=== PATIENT | male | born 1945 | race Caucasian/White ===

== ENCOUNTER 2019-05-24 13:21 | Outpatient (CLI) | payer MEDICARE, SELFPAY ==
[2019-05-24 14:05] LABS: Creatinine Urine 35.74 mg/dL (40-278)
[2019-05-24 14:10] LABS: MALB Creatinine Ratio 100.1 mg/g (0-30); Microalbumin Urine Random 35.8 mg/L
[2019-05-24 14:26] LABS: Alanine Aminotransferase 61 U/L (16-63); Alkaline Phosphatase 70 U/L (46-116); Anion Gap 14.1 mmol/L (7-16); Aspartate Amino Transferase 52 U/L (15-37); Bilirubin,Total 0.6 mg/dL (0.00-1.00); Blood Urea Nitrogen 20 mg/dL (7-18); Calcium 10.3 mg/dL (8.5-10.1); Carbon Dioxide 32 mmol/L (21-32); Chloride 96 mmol/L (98-108); Estimated Glomerular Filt Rate 43; Free T4 Free Thyroxine 0.84 ng/dL (0.76-1.46); Glucose 267 mg/dL (70-99); Osmolality Calculated 297 mOsm/kg (285-295); Potassium 4.1 mmol/L (3.5-5.1); Prostate Specific Antigen 8.8 ng/mL (< OR = 4.0); Sodium 138 mmol/L (136-145); Total Protein 8.3 g/dL (6.4-8.2)
[2019-05-26 20:42] LABS: Total Triiodothyronine (T3) 94 ng/dL (76-181)
== END 2019-05-24 13:22 | disposition home or self-care (01) ==
PROVIDERS: PCP Family Medicine; Visit Provider Urology
DX: E11.65 Type 2 diabetes mellitus with hyperglycemia (principal); Z79.4 Long term (current) use of insulin; E05.90 Thyrotoxicosis, unspecified without thyrotoxic crisis or storm; R97.20 Elevated prostate specific antigen [PSA]
CPT/HCPCS: 36415; 80053; 82043; 84153; 84439; 84443; 84480

== ENCOUNTER 2020-02-03 12:03 | Outpatient (CLI) | payer MEDICARE, SELFPAY ==
[2020-02-03 13:10] LABS: Alanine Aminotransferase 27 U/L (16-63); Albumin Level 3.9 g/dL (3.4-5.0); Alkaline Phosphatase 93 U/L (46-116); Anion Gap 8 mmol/L (8-16); Aspartate Amino Transferase 22 U/L (15-37); Bilirubin,Total 0.5 mg/dL (0.00-1.00); Blood Urea Nitrogen 9 mg/dL (7-18); Calcium 9.1 mg/dL (8.5-10.1); Carbon Dioxide 30 mmol/L (21-32); Chloride 102 mmol/L (98-108); Cholesterol 110 mg/dL (0-200); Estimated Glomerular Filt Rate 48; Glucose 160 mg/dL (70-99); HDL Direct 30 mg/dL (40-60); LDL Cholesterol Calculated 36 mg/dL (<130); Osmolality Calculated 291 mOsm/kg (285-295); Potassium 4.8 mmol/L (3.5-5.1); Sodium 140 mmol/L (136-145); Total Protein 8.1 g/dL (6.4-8.2); Triglycerides 221 mg/dL (0-150)
== END 2020-02-03 12:04 | disposition home or self-care (01) ==
LOC: CHSLAB 12:04
PROVIDERS: PCP Nurse Practitioner Family; Visit Provider Internal Medicine Cardiovascular Disease
DX: E78.5 Hyperlipidemia, unspecified (principal)
CPT/HCPCS: 36415; 80053; 80061

== ENCOUNTER 2020-05-28 13:10 | Outpatient (CLI) | payer MEDICARE, SELFPAY ==
[2020-05-28 14:29] LABS: Alanine Aminotransferase 33 U/L (16-63); Albumin Level 3.9 g/dL (3.4-5.0); Alkaline Phosphatase 77 U/L (46-116); Anion Gap 10 mmol/L (8-16); Aspartate Amino Transferase 29 U/L (15-37); Bilirubin,Total 0.6 mg/dL (0.00-1.00); Blood Urea Nitrogen 16 mg/dL (7-18); Calcium 9.3 mg/dL (8.5-10.1); Carbon Dioxide 30 mmol/L (21-32); Chloride 100 mmol/L (98-108); Estimated Glomerular Filt Rate 46; Glucose 102 mg/dL (70-99); Osmolality Calculated 291 mOsm/kg (285-295); Potassium 4.1 mmol/L (3.5-5.1); Prostate Specific Antigen 10.8 ng/mL (< OR = 4.0); Sodium 140 mmol/L (136-145); Total Protein 7.9 g/dL (6.4-8.2)
== END 2020-05-28 13:11 | disposition home or self-care (01) ==
LOC: CHSLAB 13:15
PROVIDERS: PCP Family Medicine; Visit Provider Urology
DX: R97.20 Elevated prostate specific antigen [PSA] (principal); N42.9 Disorder of prostate, unspecified
CPT/HCPCS: 36415; 80053; 84153

== ENCOUNTER 2020-11-19 07:38 | Outpatient (RCR) | payer MEDICARE, SELFPAY ==
[2020-11-11 08:30] VITALS: BMI 32.1
== END 2021-01-25 08:03 | disposition home or self-care (01) ==
LOC: ANHWOC 07:38
PROVIDERS: PCP Family Medicine; Visit Provider Family Medicine
DX: I83.009 Varicose veins of unspecified lower extremity with ulcer of unspecified site (principal); L97.909 Non-pressure chronic ulcer of unspecified part of unspecified lower leg with unspecified severity
CPT/HCPCS: 29581; 99213; A9270; G0463

== ENCOUNTER 2021-01-31 12:20 | Emergency (ER) | payer MEDICARE, SELFPAY ==
--- NOTE | ~2021-01-31 | CT_ITS ---
EXAMINATION: CT brain wo con INDICATION: Head injury COMPARISON: 05/17/2018 TECHNIQUE: Standard unenhanced head CT. The dose-length product (DLP) was 605.33 mGy-cm. The mA was a djusted according to patient size. Iterative reconstruction technique was employed. FINDINGS: There is subarachnoid hemorrhage in the left frontal and temporal lobes. No evidence of mas s lesion. No evidence of acute infarction. There is encephalomalacia in the left parieto-occipital re gion. There is mild periventricular and subcortical hypodensity probably related to small vessel isch emic disease. There is mild prominence of the sulci and ventricles related to cerebral atrophy. Intra cranial calcified cerebral atherosclerosis is noted. There is no mass effect or midline shift. The or bits and soft tissues are unremarkable. There is a fracture through the left mastoid air cells with t iny amount of pneumocephalus posterolateral to the left temporal lobe. IMPRESSION: 1. Subarachnoid hemorrhage in the left frontal and temporal lobes. 2. Fracture through the left mastoid air cells with small volume of pneumocephalus. These findings we re discussed with Dr. Cesar Gardiner MD in the Emergency Department at 1306 hours on 01/31/2021. Reviewed, dictated and finalized at location A. TS DIRECTOR IMPRESSION: 1. Subarachnoid hemorrhage in the left frontal and temporal lobes. 2. Fracture through the left mastoid air cells with small volume of pneumocepha maira. These findings were discussed with Dr. Cesar Gardiner MD in the Emerge ncy Department at 1306 hours on 01/31/2021.
--- NOTE | ~2021-01-31 | CT_ITS ---
EXAMINATION: CT cervical spine wo con DATE: 01/31/2021 12:48 INDICATION: Head injury TECHNIQUE: Computed tomography (CT) of the cervical spine was performed without intravenous contrast. The dose-length product (DLP) was 440.86 mGy-cm. Automated exposure control and iterative reconstruc tion technique were employed. COMPARISON: None FINDINGS: There is no fracture, dislocation, or subluxation. The vertebral body heights and alignment are normal. There is mild loss of intervertebral disc space height at C4-5. The odontoid is intact. Small degenerative osteophytes project from the anterior endplates of multiple vertebral bodies. Ther e is mild multilevel facet and uncovertebral joint osteoarthritis. A small focus of pneumocephalus is noted posterolateral to the left temporal lobe. IMPRESSION: 1. Mild cervical spondylosis. 2. Tiny focus of pneumocephalus discussed on head CT report. Reviewed, dictated and finalized at location A. T LIABILITY ANALYST
--- NOTE | ~2021-01-31 | XR_ITS ---
EXAMINATION: XR foot LT min 3V DATE: 01/31/2021 12:57 INDICATION: Heel wound, swelling TECHNIQUE: Dorsoplantar, lateral, and oblique views of the left foot were obtained. COMPARISON: 01/12/2016 FINDINGS: There are changes of interval partial fifth metatarsal resection. There is extensive soft t issue gas surrounding the heel which extends into the medial foot as well as proximally in the leg. L ucencies at the calcaneus may reflect underlying osteomyelitis. There is soft tissue swelling over th e dorsum of the foot. There is polyarticular osteoarthritis. IMPRESSION: 1. Extensive soft tissue gas and swelling of the foot with possible osteomyelitis of the calcaneus. Reviewed, dictated and finalized at location A. RBISH TECHNICIAN IMPRESSION: 1. Extensive soft tissue gas and swelling of the foot with possible osteomyelit is of the calcaneus.
--- NOTE | ~2021-01-31 | XR_ITS ---
EXAMINATION: XR toe 1st RT min 2V INDICATION: Right first toe wound TECHNIQUE: Four views of the right first toe are obtained. COMPARISON: 12/15/2017 FINDINGS: There is swelling of the first toe. No acute underlying osseous abnormality is identified. There is moderate osteoarthritis of the interphalangeal joints and mild osteoarthritis of the first m etatarsophalangeal joint and in the midfoot. There is dorsal soft tissue swelling of the foot. IMPRESSION: 1. Soft tissue swelling of the first toe without acute osseous abnormality identified. Reviewed, dictated and finalized at location A. Y LINE TECHNICIAN IMPRESSION: 1. Soft tissue swelling of the first toe without acute osseous abnormality iden tified.
[2021-01-31 12:24] VITALS: BP 155/82; PULSE 90; RESP 14; O2SAT 99
--- NOTE | 2021-01-31 12:40 | ED.GENADULT ---
HPI - General Adult General Chief complaint: Fall Stated complaint: fall, head trauma Time Seen by Provider: 01/31/21 12:28 History of Present Illness HPI narrative: Patient is a 75-year-old male who presents ER for an evaluation of his feet bilaterally. reports she has a new wound to his right great toe and his left heel. She first noticed them today. She reports she has leg ulcers they have been seeing wound care for that they have healed and that these are different. Unfortunately while the patient was walking into the hospital he missed a step on a curb and fell backwards striking his head on the ground. Patient went from a baseline of being awake and alert and oriented x4 only being oriented x1. Patient takes Xarelto. He cannot give a history as to the mechanism of his fall. Related Data Home Medications Medication Instructions Recorded Confirmed carvedilol 25 mg tablet 25 mg PO BID tablet 01/18/19 11/11/20 comp.stocking,knee,long,medium #12 each 01/18/19 08/17/20 losartan 50 mg tablet 50 mg PO DAILY 01/18/19 11/11/20 metformin 1,000 mg tablet 1,000 mg PO DAILY 01/18/19 11/11/20 rivaroxaban 20 mg tablet 20 mg PO DAILY 01/18/19 11/11/20 rosuvastatin 10 mg tablet 10 mg PO DAILY 01/18/19 11/11/20 spironolactone 25 mg tablet 25 mg PO DAILY 01/18/19 11/11/20 omega-3 fatty acids 1,000 mg 3,000 mg PO DAILY cap 01/21/19 11/11/20 capsule insulin human U-100 NPH-regulr 95 unit SUB-Q BID ml 10/09/19 11/11/20 70-30 mix 100 unit/mL subcutaneous susp multivitamin with minerals 1 tablet PO DAILY 10/10/19 11/11/20 Allergies Allergy/AdvReac Type Severity Reaction Status Date / Time dulaglutide [From [facility]] Allergy Unknown Unknown Verified 11/30/20 07:35 nifedipine Allergy Unknown Unknown Verified 11/30/20 07:35 Review of Systems Review of Systems: ROS unobtainable: Yes unobtainable due to mental status [facility] Past Medical History Medical History (Updated 01/31/21 @ 13:41 by Cesar Gardiner MD) Atrial fibrillation with normal ventricular rate CKD (chronic kidney disease) stage 3, GFR 30-59 ml/min Diabetes mellitus Edema of both legs History of cardioversion HTN (hypertension) (05/16/17) Hyperlipidemia (05/16/17) Overweight Subconjunctival hemorrhage (12/26/17) Type 2 diabetes mellitus (05/16/17) Family History Family History Mother Family history unremarkable Father Family history unremarkable Social History Social History Smoking status: Never smoker Alcohol intake: never Substance use: never Gender identity (if verbalized by the patient): Male Sexual Orientation (if Verbalized by the Patient): Straight or Heterosexual Spiritual care concerns: Yes Exam Narrative: GENERAL: Well-appearing, well-nourished, and in no acute distress. HEAD: Normocephalic, 1 cm vertical laceration well approximated just superior to the occipital protuberance.. ENT: Mucous membranes moist. CHEST: Clear to auscultation. No respiratory distress. HEART: Irregular regular rate and rhythm. Normal peripheral pulses. ABDOMEN: Soft, nontender, nondistended. EXTREMITIES: Normal range of motion. 3+ lower extremity edema with chronic lower extremity venous stasis changes.. SKIN: Warm, dry. Left heel has a pressure ulcer that is moist and necrotic with cellulitis moving proximally. Foul odor. No drainage. Right great toe with developing wound around the toenail. No drainage or overt cellulitis. No necrosis of toe. NEURO: Alert and oriented x1. Clear speech. No facial droop. Course Course Emergency Course: Patient has been accepted to the ER at [facility] by Dr. Marques. Patient and family educated on dx and tx plan. Patient with recieve Keppra 1g IV. Vital Signs Vital signs: Vital Signs Pulse Rate 90 01/31/21 12:24 Respiratory Rate 14 01/31/21 12:24 Blood Pressure 155/82 H 01/31/21 12:24 Pulse Oximetry
[2021-01-31 13:16] VITALS: BP 159/82; PULSE 100; RESP 14; O2SAT 100
[2021-01-31 13:26] VITALS: TEMP 37.3
[2021-01-31] MEDS: levETIRAcetam 1000MG/NACL100ML 1,000 MG/100 ML BAG 400 MG IVPB (13:32)
== END 2021-01-31 14:25 | disposition short-term general hospital (02) ==
PROVIDERS: Emergency Provider Emergency Medicine; PCP Family Medicine
DX: S06.6X9A Traumatic subarachnoid hemorrhage with loss of consciousness of unspecified duration, initial encounter (principal); S02.19XA Other fracture of base of skull, initial encounter for closed fracture; E11.69 Type 2 diabetes mellitus with other specified complication; M86.172 Other acute osteomyelitis, left ankle and foot; E11.621 Type 2 diabetes mellitus with foot ulcer; L97.509 Non-pressure chronic ulcer of other part of unspecified foot with unspecified severity; E11.22 Type 2 diabetes mellitus with diabetic chronic kidney disease; I12.9 Hypertensive chronic kidney disease with stage 1 through stage 4 chronic kidney disease, or unspecified chronic kidney disease; N18.30 Chronic kidney disease, stage 3 unspecified; I48.91 Unspecified atrial fibrillation; E78.5 Hyperlipidemia, unspecified; E66.3 Overweight; Z68.22 Body mass index [BMI] 22.0-22.9, adult; Z79.4 Long term (current) use of insulin; Z79.84 Long term (current) use of oral hypoglycemic drugs; M47.812 Spondylosis without myelopathy or radiculopathy, cervical region; Z79.01 Long term (current) use of anticoagulants; W10.1XXA Fall (on)(from) sidewalk curb, initial encounter
CPT/HCPCS: 70450; 72125; 73630; 73660; 96365; 99291; J1953

== ENCOUNTER 2021-05-04 13:50 | Emergency (ER) | payer MEDICARE, SELFPAY ==
--- NOTE | ~2021-05-04 | XR_ITS ---
EXAMINATION: XR chest 2V DATE: 05/04/2021 14:30 INDICATION: Chest pain. TECHNIQUE: Frontal and lateral views of the chest were obtained. COMPARISON: Chest 2 views 05/17/2018, chest CT 05/17/2018 FINDINGS: There is mild atelectasis in the lower lung zones. No pleural effusion or pneumothorax. The heart size is normal. IMPRESSION: 1. Mild atelectasis in the lower lung zones. Reviewed, dictated and finalized at location A. LATHER
--- NOTE | ~2021-05-04 | CT_ITS ---
EXAMINATION: CTA chest PE protocol DATE: 05/04/2021 19:25 INDICATION: Left-sided chest pain. Atrial fibrillation. TECHNIQUE: Computed tomography angiography (CTA) of the chest was performed with 100 mL Omnipaque-350 intravenous contrast timed to evaluate the pulmonary arteries. Coronal maximum intensity projection 3D-reconstructions were created by the technologist. Automated exposure control and iterative reconst ruction technique were employed. Exam dose: 760.91 mGy-cm total exam DLP. COMPARISON: 05/04/2021 AP and lateral chest 05/17/2018 CT pulmonary scan FINDINGS: There is diagnostic contrast enhancement of the pulmonary arteries and no evidence of pulmo nary embolism. No thoracic aortic aneurysm. There is cardiomegaly. Coronary atherosclerosis, aortic and great vessel calcifications. No hilar or mediastinal mass lesion or lymphadenopathy. There is elevation of the right leaf of the diaphragm. Mild emphysema. There is mild infiltrate or atelectasis at the lung bases, right greater than left. 9 mm middle lobe mass or constitutional since 05/17/2018 and therefore most likely benign. Small stones are noted in the dependent aspect of the gallbladder. Approximately 2 cm right renal cyst. Normal morphology of the adrenal glands. Mild bilateral gynecomastia. IMPRESSION: No evidence of pulmonary embolism Mild emphysema. Mild infiltrate or atelectasis at the lung bases, greater in the left; elevation right diaphragm Stable 9 mm middle lobe mass since 05/17/2018, therefore most likely benign Cholelithiasis Reviewed, dictated and finalized at Location A. Reviewed, dictated and finalized at location A. OGRAPHY SALES ASSOCIATE IMPRESSION: No evidence of pulmonary embolism Mild emphysema. Mild infiltrate or atelectasis at the lung bases, greater in the left; elevatio n right diaphragm Stable 9 mm middle lobe mass since 05/17/2018, therefore most likely benign Cholelithiasis
--- NOTE | 2021-05-04 13:53 | ECG_ITS ---
Measurements Intervals [place] Rate: 70 P: WA: 0 QRS: 33 QRSD: 97 T: 49 QT: 380 QTc: 411 Interpretive Statements ATRIAL FIBRILLATION ABNORMAL RHYTHM ECG LOW VOLTAGE IN LIMB LEADS NO PREVIOUS ECG AVAILABLE FOR COMPARISON Electronically Signed On 05-04-2021 15:53:49 AIR HOIST OPERATOR by Beau Mcdonald M.D.
[2021-05-04 13:54] VITALS: BP 155/101; PULSE 71; RESP 20; TEMP 36.3; O2SAT 100
[2021-05-04 14:13] LABS: Basophils Absolute Auto 0.1 K/mm3 (0.0-0.1); Basophils Percent Auto 0.8 % (0.2-1.2); Eosinophils Absolute Auto 0.4 K/mm3 (0-0.3); Eosinophils Percent Auto 3.6 % (0-4.4); Hematocrit 40.2 % (42.0-52.0); Hemoglobin 13.2 g/dL (14.0-18.0); Immature Granulocyte Absolute 0.08 K/mm3 (0.00-0.031); Immature Granulocyte Percent A 0.8 % (0-0.5); Lymphocytes Absolute Auto 1.98 K/mm3 (0.9-3.2); Lymphocytes Percent Auto 19.3 % (18.3-44.2); Mean Corpuscular HGB Conc 32.8 g/dl (32-36); Mean Corpuscular Hemoglobin 28.2 pg (26-34); Mean Corpuscular Volume 85.9 fl (80-100); Mean Platelet Volume 9.9 fl (7.4-10.4); Monocytes Absolute Auto 0.7 K/mm3 (0.1-0.6); Monocytes Percent Auto 6.4 % (2.6-8.5); Neutrophils Absolute Auto 7.1 K/mm3 (1.3-6.7); Neutrophils Percent Auto 69.1 % (45.5-73.1); Platelet Count Result 294 k/mm3 (150-375); Red Blood Count 4.68 M/mm3 (4.6-6.20); Red Cell Distribution Width 14.2 % (11.5-14.5); White Blood Count 10.3 K/mm3 (4.5-10.0)
[2021-05-04 14:22] LABS: INR 1.1; Prothrombin Time 13.7 Seconds (11.1-14.7)
[2021-05-04 14:23] LABS: Partial Thromboplastin Time 29.3 SECONDS (22.3-36.8)
[2021-05-04 14:24] LABS: Alanine Aminotransferase 30 U/L (4-50); Albumin Level 4.3 g/dL (3.5-5.1); Alkaline Phosphatase 84 U/L (38-126); Anion Gap 11 mmol/L (8-16); Aspartate Amino Transferase 34 U/L (17-59); Bilirubin,Total 0.2 mg/dL (0.2-1.3); Blood Urea Nitrogen 44 mg/dL (9-20); Calcium 9.1 mg/dL (8.4-10.2); Carbon Dioxide 24 mmol/L (22-30); Chloride 104 mmol/L (98-107); Estimated CRCL calculation 83 ml/min; Estimated Glomerular Filt Rate > 60; Glucose 151 mg/dL (65-110); Lipase 293 U/L (23-300); Potassium 4.1 mmol/L (3.4-5.0); Sodium 139 mmol/L (137-145)
[2021-05-04 14:33] LABS: Troponin I < 0.012 ng/mL (0.000-0.034)
[2021-05-04 17:00] VITALS: BP 169/72; PULSE 72; RESP 16; O2SAT 99
[2021-05-04 17:37] LABS: Troponin I < 0.012 ng/mL (0.000-0.034)
[2021-05-04 18:12] VITALS: BP 169/89; PULSE 72; RESP 16; O2SAT 100
--- NOTE | 2021-05-04 18:50 | ED.CHESTPAIN ---
HPI - Chest Pain General Chief Complaint: Chest Pain Stated Complaint: Intermittent Left Chest Pain Time Seen by Provider: 05/04/21 18:11 Source: patient Mode of arrival: ambulatory Limitations: no limitations History of Present Illness HPI narrative: 75-year-old male presented to the emergency department for evaluation of left-sided chest pain. Patient does have a history of atrial fibrillation and had previously been on Xarelto and aspirin. In January patient had a ground-level fall during which he had subarachnoid and subdural hematomas. Patient is still having follow-up with [facility] for this. Due to his intracranial bleeds patient was stopped from his Xarelto which he had been on for his atrial fibrillation. Due to some concern for persistent bleeding patient was also requested to stop his aspirin. Patient states over the last 6 weeks he has had a very positional left side chest pain. Patient states when he sits up straight the pain is absent but sometimes when he leans back or lays down flat that he can develop chest pain. Patient denies any exertional component of the chest pain. Patient has no prior history of coronary disease. Patient reports he did have a stress test approximately 5 years ago. In the emergency room and patient currently states he has no chest pain. Patient denies any associated shortness of breath. 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 Related Data Home Medications Medication Instructions Recorded Confirmed comp.stocking,knee,long,medium #12 each 01/18/19 08/17/20 Allergies Allergy/AdvReac Type Severity Reaction Status Date / Time No Known Allergies Allergy Verified 02/14/21 18:11 Review of Systems Review of Systems: CONSTITUTIONAL: Denies fever, chills, or sweats. EYES: Denies visual changes, redness, or discharge. ENT: Denies rhinorrhea, congestion, sore throat, or otalgia. CARDIOVASCULAR: Intermittent left upper chest pain RESPIRATORY: Denies cough or dyspnea. GASTROINTESTINAL: Denies abdominal pain, nausea, vomiting, or diarrhea. GENITOURINARY: Denies dysuria or hematuria. SKIN: Denies rash or itching. MUSCULOSKELETAL: Denies back pain, joint pain, or myalgia. NEUROLOGIC: Denies headache, numbness, or weakness. [facility] Past Medical History Medical History (Updated 05/04/21 @ 21:11 by Yunier Narvaez MD) Atrial fibrillation with normal ventricular rate CKD (chronic kidney disease) stage 3, GFR 30-59 ml/min Diabetes mellitus Edema of both legs Gout History of cardioversion History of necrotizing fasciitis HTN (hypertension) (05/16/17) Hyperlipidemia (05/16/17) Overweight Subconjunctival hemorrhage (12/26/17) Type 2 diabetes mellitus (05/16/17) Family History Family History Mother Family history unremarkable Father Family history unremarkable Social History Social History Social History: patient lives with his and daughter. They live in a two-story home. He will reside on the 1st floor. is in good health and can help with caregiver services. Daughter is a nurse and is also attending school but will provide some assistance Smoking status: Never smoker Second hand tobacco smoke exposure: No Alcohol intake: never Substance use: never Gender identity (if verbalized by the patient): Male Sexual Orientation (if Verbalized by the Patient): Straight or Heterosexual Spiritual care concerns: Yes Exam Narrative: APPEARANCE: Well appearing, no pain, no distress, well-nourished. HEAD: normocephalic, atraumatic. EYES: PERRLA/EOMI, conjunctivae clear. NOSE: Normal no drainage NECK: Supple. No adenopathy, no masses. RESPIRATORY: Airway patent, respirations nonlabored. Clear to auscultation bilaterally, no rales, rhonchi, wheezing. CARDIOVASCULAR: Atrial fibrillation with no RVR, no chest wall tendernes
[2021-05-04 19:52] LABS: Glucose Point of Care 157 mg/dl (65-105)
[2021-05-04 21:35] VITALS: BP 168/94; PULSE 92; RESP 23; O2SAT 98
== END 2021-05-04 21:36 | disposition home or self-care (01) ==
PROVIDERS: Emergency Medicine; Emergency Provider Emergency Medicine; PCP Family Medicine
DX: R07.9 Chest pain, unspecified (principal); I12.9 Hypertensive chronic kidney disease with stage 1 through stage 4 chronic kidney disease, or unspecified chronic kidney disease; E11.22 Type 2 diabetes mellitus with diabetic chronic kidney disease; N18.30 Chronic kidney disease, stage 3 unspecified; I48.91 Unspecified atrial fibrillation
CPT/HCPCS: 36415; 71046; 71275; 80053; 82948; 83690; 84484; 85025; 85610; 85730; 93005; 99284; Q9967

== ENCOUNTER 2021-07-01 15:52 | Outpatient (CLI) | payer MEDICARE, SELFPAY ==
--- NOTE | ~2021-07-01 | CT_ITS ---
EXAMINATION: CT brain wo con DATE: 07/01/2021 16:14 INDICATION: Subarachnoid hemorrhage follow-up TECHNIQUE: Computed tomography (CT) of the head was performed without intravenous contrast. The mA wa s adjusted according to patient size. Iterative reconstruction technique was employed. Exam dose: 68 1.00 mGy-cm total exam DLP. COMPARISON: 01/31/2021 CT brain FINDINGS: There is a right mixed attenuation frontoparietal subdural hematoma which is predominantly low-attenuation. Scattered areas of the higher attenuation noted within the subdural hematoma. This m easures up to approximately 1.5 cm maximal depth. There is a very shallow mixed attenuation left frontoparietal subdural hematoma. No midline shift or significant mass effect is evident. There is chronic encephalomalacia in the medial left occipital area consistent with old infarct, post erior cerebral artery territory. There is very prominent bilateral vertebral artery calcification as well as some basilar artery and p rominent bilateral carotid siphon and supraclinoid internal carotid artery calcification. There is nonspecific diminished attenuation of the cerebral white matter, likely due to chronic small vessel ischemic changes. No intracranial mass lesion or parenchymal, subarachnoid or intraventricular hemorrhage is noted. Moderate central and cortical cerebral and cerebellar atrophy. Included paranasal sinuses and the mastoid air cells are normally developed and aerated. No fracture or bone destruction of the cranial vault is detected. IMPRESSION: Bilateral subdural hematomas, with mixed high and low attenuation suggesting subacute ch ronicity or some possible recent superimposed upon chronic subdural bleed. Chronic left occipital infarct Cerebral atherosclerosis and chronic small vessel ischemic changes of the cerebral white matter Dr. Pete was given Dr. Varela's name as the patient's physician by the [facility] radiology department personnel. Dr. Pete then telephoned Dr. Love's office and left a voicemail with Dr. Love's medical ass istant at 1709 hours on 07/01/2021. There was no way to contact anyone directly by phone and no emerge njy phone number was given. Dr. Pete then telephoned the Radiology Department at [facility] at 1710 hours to req uest assistance with locating the patient and/or the patient's physician. . Dr. Pete was given the name of Dr. Britta Alcantar at [phone]. He contacted that number, was in itially given [phone] to call, which was a recorded message not providing any physician contact for relay of the critical CT findings. Dr. Pete again called [phone], reporting the emergency sinclair bdural hematoma findings and requesting a callback from a treating physician. Dr. James, [facility] attending neurosurgery physician returned the phone call. He was not familiar with the lj e and indicated that the patient would need to be referred by the emergency room from [facility]. Dr. Pete obtained the patient's bone number from the radiology Department and contacted the patient ameena reyes at home at [phone] and spoke with the patient and his . They indicated that the miki ent was being followed on an outpatient basis by Dr. Alcantar for subdural hematoma. She had requested that the CT scan be forwarded to her attention at [facility] for comparison with recent CT head examinations performed there. Mr. Fierro and his indicated that he was doing very well, had no current neurological symptoms , and that they would follow up with Dr. Alcantar. Reviewed, dictated and finalized at Location A. Reviewed, dictated and finalized at location A. IMPRESSION: Bilateral subdural hematoma
== END 2021-07-01 15:53 | disposition home or self-care (01) ==
LOC: CHSIMG 15:53
PROVIDERS: PCP Family Medicine
DX: S06.5X9A Traumatic subdural hemorrhage with loss of consciousness of unspecified duration, initial encounter (principal)
CPT/HCPCS: 70450

== ENCOUNTER 2021-09-03 12:12 | Outpatient (CLI) | payer MEDICARE, SELFPAY ==
--- NOTE | ~2021-09-03 | CT_ITS ---
EXAMINATION: CT brain wo con DATE: 09/03/2021 12:38 INDICATION: Subdural hematoma TECHNIQUE: Computed tomography (CT) of the head was performed without intravenous contrast. The mA wa s adjusted according to patient size. Iterative reconstruction technique was employed. Exam dose: 60 5.33 mGy-cm total exam DLP. COMPARISON: 07/01/2021 CT brain 01/31/2021 CT brain FINDINGS: Prominent bilateral vertebral artery and carotid siphon internal carotid artery calcificati ons are noted. There is nonspecific diminished attenuation of the cerebral white matter, likely due to chronic small vessel ischemic changes of the cerebral white matter. There is an old infarct of the left occipital lobe. There is mixed high and low attenuation chronic right frontoparietal subdural hematoma, moderately di minished in size since 07/01/2021. Slight left chronic frontal parietal cerebral dural hematoma, stable. No interval intracranial hemorrhage, midline shift or mass effect or interval cerebrovascular acciden t is detected. Moderate cerebral and cerebellar volume loss. Included paranasal sinuses and mastoid air cells are unremarkable. No fracture or bone destruction of the cranial vault. IMPRESSION: Moderately diminished size of right chronic subdural hematoma. Stable slight left fronta l parietal chronic subdural hematoma. Cerebral atherosclerosis and chronic small vessel ischemic changes of the cerebral white matter Old left occipital infarct is again noted Reviewed, dictated and finalized at Location A. Reviewed, dictated and finalized at location B. IMPRESSION: Moderately diminished size of right chronic subdural hematoma. Sta ble slight left frontal parietal chronic subdural hematoma. Cerebral atherosclerosis and chronic small vessel ischemic changes of the cereb ral white matter Old left occipital infarct is again noted
== END 2021-09-03 12:13 | disposition home or self-care (01) ==
LOC: CHSIMG 12:13
PROVIDERS: PCP Family Medicine
DX: S06.5X9A Traumatic subdural hemorrhage with loss of consciousness of unspecified duration, initial encounter (principal)
CPT/HCPCS: 70450

== ENCOUNTER 2022-02-07 11:44 | Outpatient (CLI) | payer MEDICARE, SELFPAY ==
--- NOTE | ~2022-02-07 | CT_ITS ---
EXAMINATION: CT brain wo con DATE: 02/07/2022 12:05 INDICATION: Subdural hematoma follow-up TECHNIQUE: Computed tomography (CT) of the head was performed without intravenous contrast. The mA wa s adjusted according to patient size. Iterative reconstruction technique was employed. Exam dose: 60 5.33 mGy-cm total exam DLP. COMPARISON: 01/04/2022, 06/11/2021, 01/31/2021 CT brain FINDINGS: Right parietal relatively isodense subdural hematoma measures approximately 6 mm maximal de pth on the current examination compared to 11 mm on 09/03/2021. Prominent bilateral vertebral artery calcifications and carotid siphon internal carotid artery calcif ications. There is nonspecific diminished attenuation of the cerebral white matter, likely due to chr onic small vessel ischemic changes. Chronic left occipital lobe cerebrovascular infarct. There is moderate cerebral and cerebellar volume loss. No intracranial mass lesion or recent hemorrha ge or midline shift or mass effect are noted. Included paranasal sinuses and mastoid air cells are normally developed and aerated. No fracture or bone destruction of the cranial vault. IMPRESSION: Diminished size of chronic right subdural hematoma since 09/03/2021 Chronic left occipital infarct Cerebral atherosclerosis, chronic small vessel ischemic changes of cerebral white matter Reviewed, dictated and finalized at Location A. Reviewed, dictated and finalized at location B. BERRY SORTER IMPRESSION: Diminished size of chronic right subdural hematoma since 09/03/2021 Chronic left occipital infarct Cerebral atherosclerosis, chronic small vessel ischemic changes of cerebral whi te matter
== END 2022-02-07 11:45 | disposition home or self-care (01) ==
LOC: CHSIMG 11:46
PROVIDERS: PCP Family Medicine
DX: S06.5X9A Traumatic subdural hemorrhage with loss of consciousness of unspecified duration, initial encounter (principal)
CPT/HCPCS: 70450

== ENCOUNTER 2022-08-18 11:56 | Outpatient (CLI) | payer OTHER, SELFPAY ==
[2022-08-18 12:31] LABS: Basophils Absolute Auto 0.07 K/mm3 (0.00-0.10); Basophils Percent Auto 0.9 % (0.0-1.0); Eosinophils Absolute Auto 0.25 K/mm3 (0.02-0.50); Eosinophils Percent Auto 3.4 % (1.0-6.0); Hematocrit 46.9 % (37.0-46.0); Immature Granulocyte Absolute 0.04 K/mm3 (0.00-0.00); Immature Granulocyte Percent A 0.5 % (0.0-0.0); Lymphocytes Absolute Auto 2.21 K/mm3 (1.10-4.50); Lymphocytes Percent Auto 29.8 % (18.0-42.0); Mean Corpuscular HGB Conc 34.1 g/dL (32.0-36.0); Mean Corpuscular Hemoglobin 30.1 pg (27.0-31.0); Mean Corpuscular Volume 88.2 fL (78.0-102.0); Mean Platelet Volume 10.2 fl (8.7-11.0); Monocytes Absolute Auto 0.68 K/mm3 (0.10-0.90); Monocytes Percent Auto 9.2 % (2.0-11.0); Neutrophils Absolute Auto 4.2 K/mm3 (1.7-7.2); Neutrophils Percent Auto 56.2 % (50.0-70.0); Platelet Count Result 207 K/mm3 (150-420); Red Blood Count 5.32 M/mm3 (4.70-6.10); White Blood Count 7.4 K/mm3 (4.8-10.8)
[2022-08-18 12:32] LABS: Appearance Urine Clear (Clear); Bilirubin Urine Negative (Negative); Blood Urine Negative (Negative); Color Urine Yellow (Yellow); Glucose Urine UA 3+ (Negative); Ketones Urine Negative (Negative); Leukocyte Esterase Ur Negative (Negative); Nitrate Urine Negative (Negative); Protein Urine Negative (Negative); Urobilinogen Urine 0.2 mg/dL (0.2-1.0)
[2022-08-18 12:38] LABS: Creatinine Urine 51.95 mg/dL (40-278); MALB Creatinine Ratio 115.8 mg/g (0-30); Microalbumin Urine Random 60.2 mg/L
[2022-08-18 12:39] LABS: Add Urine Microscopic? YES; Bacteria Urine Rare /hpf; RBC Urine None seen /hpf (0-2); WBC Urine None seen /hpf (0-3)
[2022-08-18 12:40] LABS: Hemoglobin A1C 7.8 % (<5.7)
[2022-08-18 13:12] LABS: Alanine Aminotransferase 31 U/L (16-63); Albumin Level 4.2 g/dL (3.4-5.0); Alkaline Phosphatase 93 U/L (46-116); Anion Gap 9 mmol/L (8-16); Aspartate Amino Transferase 27 U/L (15-37); Bilirubin,Total 0.6 mg/dL (0.00-1.00); Blood Urea Nitrogen 34 mg/dL (7-18); Calcium 9.9 mg/dL (8.5-10.1); Carbon Dioxide 34 mmol/L (21-32); Chloride 97 mmol/L (98-108); Cholesterol 139 mg/dL (0-200); Estimated Glomerular Filt Rate 57; Glucose 174 mg/dL (70-99); HDL Direct 39 mg/dL (40-60); LDL Cholesterol Calculated 38 mg/dL (<130); Osmolality Calculated 301 mOsm/kg (285-295); Potassium 3.9 mmol/L (3.5-5.1); Prostate Specific Antigen 15.7 ng/mL (< OR = 4.0); Sodium 140 mmol/L (136-145); Thyroid Stimulating Hormone 3.59 uIU/mL (0.36-3.74); Total Protein 8.3 g/dL (6.4-8.2); Triglycerides 310 mg/dL (0-150)
== END 2022-08-18 11:57 | disposition home or self-care (01) ==
LOC: CHSLAB 12:03
PROVIDERS: PCP Family Medicine
DX: E11.8 Type 2 diabetes mellitus with unspecified complications (principal); Z12.5 Encounter for screening for malignant neoplasm of prostate
CPT/HCPCS: 36415; 80053; 80061; 81001; 82043; 83036; 84153; 84443; 85025; 87086; G0103

== ENCOUNTER 2022-09-13 10:37 | Outpatient (RCR) | payer OTHER, SELFPAY ==
--- NOTE | 2022-09-28 07:33 | PTOPEVAL1 ---
Assessment and note entered by JT File, PT Evaluation Information Assessment Status Evaluation Diagnosis abnormal gait, L BK Amputation, lumbar DDD Onset 08/18/22 Subjective Information patient reports he had his L foot and lower leg amputated about 1.5 years ago. he has been using a prosthetic leg to ambulate with a cane. he reports he would like to get to the point he can walk without the cane. he reports he has had 1 fall in the last 2 years. they found the infection in the L lower leg at this time. he had the foot/ lower leg amputated. he would like to be able to walk better to help around the yard and house. he reports he is able to walk around the grocery store with the cane/cart. he reports he has been having headaches for the past 2-3 months. he reports he did tell [facility] about this recently . he reports other than that he has not told any other physicians about these issues. Reported Pain Level Pain Score 2: Self Report Assessment PT Clinical Summary mr. pryor is a 77 yo man who presents to skilled PT services for evaluation of generalized weakness and functional deficits related to his below the knee amputation. he is also complicated by DDD of the lumbar spine. he displays decreased posture, flexibility, strength, and endurance today. he would benefit from continued skilled PT to address his objective/functional deficits and improve his functional activity performance/ quality of life. Plan of Care Interventions Gait Training,Manual Therapy,Neuro Re-education, Patient/Caregiver Educati,Therapeutic Activities, Therapeutic Exercise PT Services Indicated Yes Treatment Frequency and 2x weekly for 6 visits Duration These treatments will address the objective and functional deficits as defined above. The patient will be advanced safely and appropriately in order for the patient to progress towards his/her prior level of function. Additional exercises will be introduced and as well as a comprehensive home exercise program upon discharge, if needed, ?to ensure carryover of functional gains achieved in the clinic. This treatment plan has been reviewed and agreement upon by the patient.
--- NOTE | 2022-09-28 07:33 | OPREHPOC ---
Outpatient Therapy Plan of Care This is a Multidisciplinary Plan of Care that may contain components documented by all disciplines (PT, OT, and ST.) PT Problem 1 PT Problem #1 Knowledge Deficit PT Goal 1 Goal 1. independent and compliant with HEP to improve tolerance for continued skilled PT and exercises Target Visit 3 PT Problem 2 PT Problem #2 Impaired Strength PT Goal 1 Goal 1. improve core strength to fair + or better 2. improve bilateral hip flex strength to 4+/5 or better Target Visit 6 PT Problem 3 PT Problem #3 Impaired Functional Mobil PT Goal 1 Goal 1. patient to display improved posture noting less lumbar/hip flexion and retraction of the shoulders 2. patient to ambulate full 6 minute walk test without sitting for 600ft or more 3. patient to tolerate standing exercises for 15 minutes without sitting rest Target Visit 6
--- NOTE | 2022-10-14 14:23 | PTOPPROG ---
Assessment and note entered by JT File, PT Evaluation Information Assessment Status Progress Diagnosis abnormal gait, L BK Amputation, lumbar DDD Onset 08/18/22 Subjective Information patient reports he feels good today. he reports he has no pain. he reports he has been having issues with the R foot (great toe) and has been attending other physicians appointments. he reports he has been told he might be walking too much. Assessment PT Clinical Summary mr. ackerman presents to skilled PT for his 4th skilled therapy visit. he has not been to therapy in several weeks due to other MD appointments and issues with his R foot. today, he continues to display mm tightness, weakness, and decreased ambulation mechanics and endurance. he has made progress towards goals, and would benefit from continued skilled PT to further work on achievement of all goals and improvement of quality of life. Plan of Care Interventions Gait Training,Manual Therapy,Neuro Re-education, Patient/Caregiver Educati,Therapeutic Activities, Therapeutic Exercise PT Services Indicated Yes Treatment Frequency and continue skilled PT 1x weekly for 2 more visits Duration per initial POC These treatments will address the objective and functional deficits as defined above. The patient will be advanced safely and appropriately in order for the patient to progress towards his/her prior level of function. Additional exercises will be introduced and as well as a comprehensive home exercise program upon discharge, if needed, ?to ensure carryover of functional gains achieved in the clinic. This treatment plan has been reviewed and agreement upon by the patient.
--- NOTE | 2022-10-27 09:10 | OPREHPOC ---
Outpatient Therapy Plan of Care This is a Multidisciplinary Plan of Care that may contain components documented by all disciplines (PT, OT, and ST.) PT Problem 1 PT Problem #1 Knowledge Deficit PT Goal 1 Goal 1. independent and compliant with HEP to improve tolerance for continued skilled PT and exercises Target Visit 3 Progress Met PT Problem 2 PT Problem #2 Impaired Strength PT Goal 1 Goal 1. improve core strength to fair + or better 2. improve bilateral hip flex strength to 4+/5 or better Target Visit 6 Progress Partially Met Comment progressing PT Problem 3 PT Problem #3 Impaired Functional Mobil PT Goal 1 Goal 1. patient to display improved posture noting less lumbar/hip flexion and retraction of the shoulders 2. patient to ambulate full 6 minute walk test without sitting for 600ft or more 3. patient to tolerate standing exercises for 15 minutes without sitting rest Target Visit 6 Progress Partially Met Comment goal #2 met, goals #1 and #3 partially met
--- NOTE | 2022-10-27 09:10 | PTOPDC ---
Assessment and note entered by JT File, PT Evaluation Information Assessment Status Re-evaluation Diagnosis abnormal gait, L BK Amputation, lumbar DDD Onset 08/18/22 Subjective Information Patient reports he feels good this afternoon. He reports no pain other than a headache in the past week. He notes that he has been walking better since starting PT, and has been able to walk without a cane in his home. Patient feels comfortable performing exercises at home to maintain current level of function and strength. Reported Pain Level Pain Score 0: Self Report Assessment PT Clinical Summary Mr. Fierro has attended 6 sessions of skilled PT to address abnormal gait, L BK amputation, and lumbar DDD. He has made good progress towards goals, partially meeting strength/standing tolerance goals, and fully meeting 6 minute walk test goal. He demonstrates improved L hamstring length this date, as well as reporting increased ability to ambulate both with and without his cane . At this time, patient is to be discharged with independent HEP and recommendation for fall prevention class. Plan of Care PT Services Indicated Yes
== END 2022-10-26 10:17 | disposition home or self-care (01) ==
LOC: CHSPT 10:37
DX: Z47.1 Aftercare following joint replacement surgery (principal); Z89.512 Acquired absence of left leg below knee
CPT/HCPCS: 97110; 97161; 97530; 97750

== ENCOUNTER 2022-09-20 13:45 | Outpatient (CLI) | payer MEDICARE, SELFPAY ==
--- NOTE | ~2022-09-20 | CT_ITS ---
EXAMINATION: CT brain wo con DATE: 09/20/2022 14:17 INDICATION: subdural hematoma ,FOLLOW UP,JUDAISM SHARP . TECHNIQUE: Computed tomography (CT) of the head was performed without intravenous contrast. The mA wa s adjusted according to patient size. Iterative reconstruction technique was employed. The dose-lengt h product was 605.33 mGy-cm. COMPARISON: 02/07/2022. FINDINGS: No new intraparenchymal, subarachnoid, or intraventricular intracranial hemorrhage. No enlarging extr a-axial fluid collection. Unchanged small right and trace left subdural hematomas, stable in both siz e and density. No hydrocephalus, mass, or herniation. No acute ischemic infarct. Unremarkable dural venous sinus attenuation. No acute osseous abnormality. Trace right mastoid fluid, the remaining aerated spaces are clear. Moderate atrophy and chronic white matter change. Atherosclerotic intracranial calcification. Bilater al lens replacements. Old left medial occipital and left cerebellar infarcts. IMPRESSION: No acute intracranial process. Small right and trace left subdural hematomas, unchanged in size or density, which suggests small vol ume intermittent interval rebleeding. Reviewed, dictated and finalized at location K. IMPRESSION: No acute intracranial process. Small right and trace left subdural hematomas, unchanged in size or density, wh ich suggests small volume intermittent interval rebleeding.
[2022-09-20 15:49] LABS: Occult Blood Negative (Negative)
[2022-09-20 16:24] LABS: Alanine Aminotransferase 31 U/L (16-63); Albumin Level 4.4 g/dL (3.4-5.0); Alkaline Phosphatase 114 U/L (46-116); Anion Gap 10 mmol/L (8-16); Aspartate Amino Transferase 22 U/L (15-37); Bilirubin,Total 0.7 mg/dL (0.00-1.00); Blood Urea Nitrogen 18 mg/dL (7-18); Carbon Dioxide 33 mmol/L (21-32); Chloride 98 mmol/L (98-108); Estimated Glomerular Filt Rate 55; Glucose 192 mg/dL (70-99); Osmolality Calculated 298 mOsm/kg (285-295); Potassium 4.4 mmol/L (3.5-5.1); Prostate Specific Antigen 16.6 ng/mL (< OR = 4.0); Sodium 141 mmol/L (136-145); Total Protein 8.6 g/dL (6.4-8.2)
== END 2022-09-20 13:46 | disposition home or self-care (01) ==
PROVIDERS: PCP Family Medicine
DX: S06.5XAA Traumatic subdural hemorrhage with loss of consciousness status unknown, initial encounter (principal); Z12.5 Encounter for screening for malignant neoplasm of prostate; N42.9 Disorder of prostate, unspecified
CPT/HCPCS: 36415; 70450; 80053; 82272; 82274; 84153